=== PATIENT | female | born 1950 | race Caucasian/White ===

== ENCOUNTER 2016-05-11 07:43 | Inpatient (IN) | payer BC ==
[~2016-05-11] VITALS: Ht 160 cm; Wt 69.5 kg
[~2016-05-11 07:43] MED LIST: AROMASIN25 MG PO; CALCIUM 600 +1 EA12 PO; FOSAMAX70 MG PO; IRON325 MG PO; NABUMETONE500 MG PO; PERCOCET 5/31 TABLET PO; RELAFEN500 M1 PO; SYNTHROID25 MCG PO; TYLENOL EXTRA500 MG PO; ULTRAM50 MG PO; VISTARIL25 MG PO; WARFARIN SODIU2.5 MG PO
[2016-05-11 09:48] VITALS: BP 121/73
[2016-05-11 15:44] LABS: PROTHROMBIN TIME 10.4 (9.2-11.2)
[2016-05-11 16:34] VITALS: BP 92/53
[2016-05-11 17:54] VITALS: BP 98/59
[2016-05-11 20:02] VITALS: BP 108/55
[2016-05-11 22:12] VITALS: BP 107/58
[2016-05-11 23:57] VITALS: BP 113/63
[2016-05-12 03:56] VITALS: BP 116/60
[2016-05-12 05:16] LABS: HEMATOCRIT 32.6 % (36.0-46.0); MCV 94.8 FL (83-99)
[2016-05-12 05:25] LABS: PROTHROMBIN TIME 10.3 (9.2-11.2)
[2016-05-12 06:07] LABS: ANION GAP 6 MEQ/L (2-14); CHLORIDE 97 MEQ/L (99-109); GFR ESTIMATE (CALCULATED) > 59 mL/min/; GLUCOSE 113 mg/dL (70-99); POTASSIUM 4.5 MEQ/L (3.7-5.4); SAMPLE HEMOLYSIS CHECK 0; SAMPLE ICTERIC CHECK 0; SAMPLE LIPEMIA CHECK 0; SODIUM 129 MEQ/L (136-147); UREA NITROGEN (BUN) 9 mg/dL (9-23)
[2016-05-12] MEDS ORDERED: PERCOCET 5/31 TABLET PO (08:02)
[2016-05-12] MEDS ORDERED: VISTARIL25 MG PO (08:02)
[2016-05-12] MEDS ORDERED: COUMADIN2.5 MG PO (08:02)
[2016-05-12 08:15] VITALS: BP 119/59
[2016-05-12 11:44] VITALS: BP 99/57
[2016-05-12 15:42] VITALS: BP 120/68
[2016-05-12 20:03] VITALS: BP 120/65
[2016-05-12 23:53] VITALS: BP 132/83
[2016-05-13 03:46] VITALS: BP 134/85
[2016-05-13 04:39] LABS: HEMATOCRIT 33.1 % (36.0-46.0); MCV 91.9 FL (83-99)
[2016-05-13 04:50] LABS: CHLORIDE 96 mEq/L (99-109); INTER. NORMALIZED RATIO 1.5; POTASSIUM 4.3 mEq/L (3.7-5.4); SODIUM 129 mEq/L (136-147)
[2016-05-13 04:53] LABS: GLUCOSE 119 mg/dL (70-99)
[2016-05-13 04:54] LABS: ANION GAP 9 MEQ/L (2-14)
[2016-05-13 04:55] LABS: TOTAL BILIRUBIN 0.8 mg/dL (0.0-1.0)
[2016-05-13 04:56] LABS: ALKALINE PHOSPHATASE 119 IU/L (3-129); GFR ESTIMATE (CALCULATED) > 59 mL/min/
[2016-05-13 04:57] LABS: UREA NITROGEN (BUN) 4 mg/dL (9-23)
[2016-05-13 04:58] LABS: PROTHROMBIN TIME 15.9 (9.2-11.2)
[2016-05-13 08:27] VITALS: BP 152/77
[2016-05-13] MEDS ORDERED: [UNRECOGNIZED DRUG - REMARK] (08:56)
[2016-05-13 11:46] VITALS: BP 145/69
[2016-05-13 12:00] VITALS: BP 114/70
== END 2016-05-13 15:10 | DRG 470 ==
LOC: 2SOUTH 07:43 → 3WEST 09:16 → 2SOUTH 09:16 → 3WEST 15:59
PROVIDERS: Orthopaedic Surgery; Physician Assistant Surgical
PROC: 0SRC0J9 Replacement of Right Knee Joint with Synthetic Substitute, Cemented, Open Approach (ICD-10-PCS; principal; 2016-05-11)
DX: M17.9 Osteoarthritis of knee, unspecified (principal); E87.1 Hypo-osmolality and hyponatremia; E03.9 Hypothyroidism, unspecified; Z96.652 Presence of left artificial knee joint; Z85.3 Personal history of malignant neoplasm of breast
CPT/HCPCS: 80048; 80053; 81003; 85014; 85018; 85610; 87081; C1713; J0690; J1100; J1885; J2250; J2405; J2765; J7050; J7120